=== PATIENT | male | born 1960 | race Caucasian/White ===

== ENCOUNTER 2022-06-27 07:23 | Emergency (ER) | payer OTHER ==
[~2022-06-27] VITALS: Ht 167.6 cm; Wt 77.1 kg
[2022-06-27 07:40] VITALS: BP 124/87
--- NOTE | 2022-06-27 09:00 | NUR ---
ASSUMED PATIENT CARE, NURSING ASSESSMENT COMPLETED.
--- NOTE | 2022-06-27 09:10 | NUR ---
TO CT VIA WHEELCHAIR.
--- NOTE | 2022-06-27 09:25 | NUR ---
BACK FROM CT.
[2022-06-27] MEDS ORDERED: NAPR-54 PO (11:21)
[2022-06-27 11:29] VITALS: BP 122/80
--- NOTE | 2022-06-27 11:30 | NUR ---
Patient discharged with v/s stable. Written and verbal after care instructions given and explained. Patient verbalized understanding. Ambulatory with steady gait. All questions addressed prior to discharge. Advised to follow up with PMD.
== END 2022-06-27 23:30 | disposition home or self-care (01) ==
LOC: MED 07:23
DX: S23.3XXA Sprain of ligaments of thoracic spine, initial encounter (principal); I25.2 Old myocardial infarction; Z79.1 Long term (current) use of non-steroidal anti-inflammatories (NSAID); X50.0XXA Overexertion from strenuous movement or load, initial encounter; Y92.89 Other specified places as the place of occurrence of the external cause; Y93.89 Activity, other specified; Y99.0 Civilian activity done for income or pay
CPT/HCPCS: 72128; 99284